=== PATIENT | female | born 1985 | race Caucasian/White ===

== ENCOUNTER 2017-11-24 12:46 | Inpatient (IN) | payer OTHER ==
[2017-11-24] MEDS ORDERED: METHYLERGONOVINE 0.2 MG INJ IM (14:00)
[2017-11-24] MEDS ORDERED: CARBOPROST 250 MCG INJ IM (14:00)
[2017-11-24] MEDS ORDERED: OXYTOCIN 30 UNITS/LR 500 ML IV (14:00)
[2017-11-24] MEDS ORDERED: CEFAZOLIN 2 GM/50 ML (PMX) 50 ML IVPB (14:00)
[2017-11-24] MEDS ORDERED: MISOPROSTOL 200 MCG TAB PR (14:00)
[2017-11-24 14:25] LABS: ADD MAN DIFF? NO
[2017-11-24 14:27] LABS: WHITE BLOOD COUNT 8.2 10^3/ul (4.8-10.8)
[2017-11-24 14:27] LABS: BASOPHILS % 0.2 % (0.0-2.0); EOSINOPHILS # 0.1 10^3/ul (0.0-0.5); EOSINOPHILS % 1.7 % (0.0-7.0); HEMATOCRIT 38.4 % (37.0-47.0); HEMOGLOBIN 12.6 g/dl (12.0-16.0); LYMPHOCYTES # 3.2 10^3/ul (0.8-2.9); LYMPHOCYTES % 38.8 % (15.0-51.0); MEAN CORPUSCULAR HEMOGLOBIN 28.6 pg (29.0-33.0); MEAN CORPUSCULAR HGB CONC 32.8 g/dl (32.0-37.0); MEAN CORPUSCULAR VOLUME 87.3 fl (82.0-101.0); MEAN PLATELET VOLUME 11.2 fl (7.4-10.4); MONOCYTE # 0.6 10^3/ul (0.3-0.9); MONOCYTES % 6.8 % (0.0-11.0); NEUTROPHIL # 4.3 10^3/ul (1.6-7.5); NEUTROPHILS % 52.1 % (39.0-77.0); PLATELET COUNT 261 10^3/UL (140-415); RED CELL DISTRIBUTION WIDTH 13.9 % (11.5-14.5)
[2017-11-24 14:46] LABS: INR 0.84; PROTIME 11.6 Sec (11.9-14.9); PT RATIO 0.9
[2017-11-24 15:07] LABS: RAPID PLASMA REAGIN NONREACTIVE (NR)
[2017-11-24 15:25] LABS: HEPATITIS B SURFACE ANTIGEN NEGATIVE (NEGATIVE)
[2017-11-24] MEDS: LACTATED RINGER'S 1,000 ML IV (16:24)
[2017-11-24] MEDS ORDERED: BUPIVACAINE 0.75%/DEXT (SPINAL) 2 ML INJ (17:42)
[2017-11-24] MEDS ORDERED: FENTAnyl 50 MCG/ML VIAL (17:43)
[2017-11-24] MEDS ORDERED: morphine SULFATE/PF (10 MG/10 ML) INJ (17:43)
[2017-11-24] MEDS ORDERED: PHENYLephrine (100 MCG/ML) 5ML SYG (17:58)
[2017-11-24] MEDS ORDERED: DEXAMETHASONE 4 MG/ML 1 ML INJ (18:07)
[2017-11-24] MEDS ORDERED: ONDANSETRON 4 MG INJ (18:08)
[2017-11-24] MEDS: OXYTOCIN 30 UNITS/LR 500 ML IV (19:11)
[2017-11-24] MEDS ORDERED: ONDANSETRON 4 MG INJ IV (19:30)
[2017-11-24] MEDS ORDERED: ZOLPIDEM 5 MG TAB PO (19:30)
[2017-11-24] MEDS ORDERED: NALOXONE (0.4 MG/ML) INJ IV (19:30)
[2017-11-24] MEDS ORDERED: HYDROmorphONE 0.5 MG/0.5 ML SYG IV (19:30)
[2017-11-24] MEDS: DIPHENHYDRAMINE 50 MG INJ IV (19:42)
[2017-11-24 23:04] LABS: WHITE BLOOD COUNT 16.9 10^3/ul (4.8-10.8)
[2017-11-24 23:04] LABS: HEMATOCRIT 40.9 % (37.0-47.0); HEMOGLOBIN 13.4 g/dl (12.0-16.0); MEAN CORPUSCULAR HEMOGLOBIN 28.5 pg (29.0-33.0); MEAN CORPUSCULAR HGB CONC 32.8 g/dl (32.0-37.0); MEAN CORPUSCULAR VOLUME 86.8 fl (82.0-101.0); MEAN PLATELET VOLUME 11.2 fl (7.4-10.4); PLATELET COUNT 273 10^3/UL (140-415); RED BLOOD COUNT 4.71 10^6/ul (4.20-5.40); RED CELL DISTRIBUTION WIDTH 13.6 % (11.5-14.5)
[2017-11-24 23:06] LABS: ADD MAN DIFF? YES
[2017-11-24 23:29] LABS: ALANINE AMINOTRANSFERASE 19 IU/L (13-69); ALBUMIN 3.5 g/dl (3.3-4.9); ALBUMIN/GLOBULIN RATIO 1.09; ALKALINE PHOSPHATASE 162 IU/L (42-121); ANION GAP 11 (8-16); ASPARTATE AMINO TRANSFERASE 23 IU/L (15-46); BILIRUBIN,INDIRECT 0.3 mg/dl (0-1.1); BILIRUBIN,TOTAL 0.3 mg/dl (0.2-1.3); BLOOD UREA NITROGEN 7 mg/dl (7-20); CALCIUM 9.4 mg/dl (8.4-10.2); CARBON DIOXIDE 22 mmol/L (21-31); CHLORIDE 106 mmol/L (97-110); CREATININE 0.39 mg/dl (0.44-1.00); GLUCOSE 94 mg/dl (70-220); POTASSIUM 4.1 mmol/L (3.5-5.1); SODIUM 135 mmol/L (135-144); TOTAL PROTEIN 6.7 g/dl (6.1-8.1); URIC ACID 4.4 mg/dl (3.1-7.9)
[2017-11-25] MEDS ORDERED: METHYLERGONOVINE 0.2 MG TAB PO (00:30)
[2017-11-25] MEDS ORDERED: MISOPROSTOL 200 MCG TAB PR ×2 (00:30)
[2017-11-25] MEDS ORDERED: CARBOPROST 250 MCG INJ IM ×2 (00:30)
[2017-11-25] MEDS ORDERED: LANOLIN 7 GM TUBE TOP (00:30)
[2017-11-25] MEDS ORDERED: OXYTOCIN 30 UNITS/LR 500 ML IV (00:30)
[2017-11-25] MEDS ORDERED: METHYLERGONOVINE 0.2 MG INJ IM (00:30)
[2017-11-25] MEDS: OXYTOCIN 30 UNITS/LR 500 ML IV (01:16)
[2017-11-25 01:25] LABS: INR 0.84; PROTIME 11.6 Sec (11.9-14.9); PT RATIO 0.9
[2017-11-25 01:26] LABS: PARTIAL THROMBOPLASTIN TIME 27.2 Sec (25.0-35.0)
[2017-11-25] MEDS: CEFAZOLIN 1 GM/50 ML (PMX) 50 ML IV (02:29)
[2017-11-25] MEDS: LACTATED RINGER'S 1,000 ML IV ×3 (05:47→19:00)
[2017-11-25] MEDS: KETOROLAC 30 MG INJ IV ×2 (05:51→14:20)
[2017-11-25] MEDS: SENNA/DOCUSATE NA (8.6MG/50MG) TAB PO ×2 (09:00→21:15)
[2017-11-25 09:06] LABS: ADD MAN DIFF? NO
[2017-11-25 09:09] LABS: WHITE BLOOD COUNT 13.7 10^3/ul (4.8-10.8)
[2017-11-25 09:09] LABS: BASOPHILS % 0.2 % (0.0-2.0); EOSINOPHILS % 0.1 % (0.0-7.0); HEMATOCRIT 34.5 % (37.0-47.0); HEMOGLOBIN 11.3 g/dl (12.0-16.0); LYMPHOCYTES # 2.9 10^3/ul (0.8-2.9); LYMPHOCYTES % 21.1 % (15.0-51.0); MEAN CORPUSCULAR HEMOGLOBIN 28.3 pg (29.0-33.0); MEAN CORPUSCULAR HGB CONC 32.8 g/dl (32.0-37.0); MEAN CORPUSCULAR VOLUME 86.5 fl (82.0-101.0); MEAN PLATELET VOLUME 11.2 fl (7.4-10.4); MONOCYTE # 0.6 10^3/ul (0.3-0.9); MONOCYTES % 4.5 % (0.0-11.0); NEUTROPHIL # 10.1 10^3/ul (1.6-7.5); NEUTROPHILS % 73.7 % (39.0-77.0); PLATELET COUNT 238 10^3/UL (140-415); RED BLOOD COUNT 3.99 10^6/ul (4.20-5.40); RED CELL DISTRIBUTION WIDTH 13.5 % (11.5-14.5)
[2017-11-25 09:32] LABS: ANION GAP 11 (8-16); BLOOD UREA NITROGEN 8 mg/dl (7-20); CALCIUM 8.9 mg/dl (8.4-10.2); CARBON DIOXIDE 23 mmol/L (21-31); CHLORIDE 100 mmol/L (97-110); CREATININE 0.46 mg/dl (0.44-1.00); GLUCOSE 107 mg/dl (70-220); POTASSIUM 3.7 mmol/L (3.5-5.1); SODIUM 130 mmol/L (135-144)
[2017-11-25] MEDS: HYDROmorphONE 0.5 MG/0.5 ML SYG IV (17:42)
[2017-11-25] MEDS ORDERED: OXYCODONE/ACETAMINOPHEN (5/325) TAB PO (17:48)
[2017-11-25] MEDS: IBUPROFEN 800 MG TAB PO (21:15)
[2017-11-25] MEDS: HYDROCODONE/APAP (5/325) TAB PO (23:27)
[2017-11-26] MEDS: LACTATED RINGER'S 1,000 ML IV (00:10)
[2017-11-26] MEDS: HYDROCODONE/APAP (5/325) TAB PO ×4 (04:21→20:44)
[2017-11-26] MEDS: IBUPROFEN 800 MG TAB PO ×3 (05:32→22:54)
[2017-11-26] MEDS: SENNA/DOCUSATE NA (8.6MG/50MG) TAB PO ×2 (08:51→20:46)
[2017-11-26] MEDS: DIPHTH/TET/ACEL PERTUSS (ADULT) 0.5 ML VIAL IM* (15:43)
[2017-11-26] MEDS: MAGNESIUM HYDROXIDE 30ML CUP PO (16:17)
[2017-11-26] MEDS: BISACODYL 10 MG SUPP PR (16:18)
[2017-11-26] MEDS ORDERED: BISACODYL 10 MG SUPP PR (22:30)
[2017-11-26] MEDS ORDERED: MAGNESIUM HYDROXIDE 30ML CUP PO (22:30)
[2017-11-27] MEDS: HYDROCODONE/APAP (5/325) TAB PO ×2 (03:37→08:07)
[2017-11-27] MEDS: IBUPROFEN 800 MG TAB PO (07:06)
[2017-11-27] MEDS: MEASLES,MUMPS,RUBELLA VACCINE INJ SC* (07:32)
[2017-11-27] MEDS: SENNA/DOCUSATE NA (8.6MG/50MG) TAB PO (09:16)
[2017-11-27 09:22] LABS: ADD MAN DIFF? NO
[2017-11-27 09:40] LABS: WHITE BLOOD COUNT 11.3 10^3/ul (4.8-10.8)
[2017-11-27 09:40] LABS: BASOPHILS % 0.2 % (0.0-2.0); EOSINOPHILS # 0.2 10^3/ul (0.0-0.5); HEMATOCRIT 32.9 % (37.0-47.0); HEMOGLOBIN 10.8 g/dl (12.0-16.0); LYMPHOCYTES # 2.9 10^3/ul (0.8-2.9); LYMPHOCYTES % 25.3 % (15.0-51.0); MEAN CORPUSCULAR HEMOGLOBIN 28.6 pg (29.0-33.0); MEAN CORPUSCULAR HGB CONC 32.8 g/dl (32.0-37.0); MEAN CORPUSCULAR VOLUME 87.3 fl (82.0-101.0); MONOCYTE # 0.7 10^3/ul (0.3-0.9); MONOCYTES % 6.4 % (0.0-11.0); NEUTROPHIL # 7.4 10^3/ul (1.6-7.5); NEUTROPHILS % 65.8 % (39.0-77.0); PLATELET COUNT 276 10^3/UL (140-415); RED BLOOD COUNT 3.77 10^6/ul (4.20-5.40); RED CELL DISTRIBUTION WIDTH 14.3 % (11.5-14.5)
== END 2017-11-27 12:20 | disposition home or self-care (01) | DRG 765 ==
LOC: L-D 12:46 → PP1 23:53
PROVIDERS: Obstetrics & Gynecology
PROC: 10D00Z1 Extraction of Products of Conception, Low, Open Approach (ICD-10-PCS; principal; 2017-11-24 17:00)
DX: O34.219 Maternal care for unspecified type scar from previous cesarean delivery (principal); O99.214 Obesity complicating childbirth; E66.01 Morbid (severe) obesity due to excess calories; Z68.42 Body mass index [BMI] 45.0-49.9, adult; Z3A.39 39 weeks gestation of pregnancy; Z37.0 Single live birth
CPT/HCPCS: 80048; 80053; 84560; 85025; 85384; 85610; 85730; 86592; 86850; 86900; 86901; 87340; 90715; 99464